=== PATIENT | male | born 1970 | race Caucasian/White ===

== ENCOUNTER → 2020-12-08 | Outpatient (CLI) | payer OTHER | LOC: HEART CORB 09:37 | DX: R68.89 Other general symptoms and signs (principal) ==

== ENCOUNTER → 2021-02-04 | Outpatient (CLI) | payer BC | LOC: CT 09:35 | DX: I87.323 Chronic venous hypertension (idiopathic) with inflammation of bilateral lower extremity (principal); R00.2 Palpitations; R60.0 Localized edema; E78.49 Other hyperlipidemia; I11.0 Hypertensive heart disease with heart failure; I50.9 Heart failure, unspecified; I43 Cardiomyopathy in diseases classified elsewhere; R07.9 Chest pain, unspecified; E78.5 Hyperlipidemia, unspecified; R06.02 Shortness of breath; I48.91 Unspecified atrial fibrillation; R53.82 Chronic fatigue, unspecified; M79.10 Myalgia, unspecified site; M43.17 Spondylolisthesis, lumbosacral region; M51.37 Other intervertebral disc degeneration, lumbosacral region | CPT/HCPCS: 36415; 82565; 84520; Q9967 ==